=== PATIENT | female | born 1990 | race African-American/Black ===

== ENCOUNTER 2023-03-01 16:52 | Emergency (ER) | payer SELFPAY ==
[2023-03-01 17:23] LABS: BASOPHILS ABSOLUTE AUTO 0.04 10^3/uL (0.00-0.50); BASOPHILS PERCENT AUTO 0.4 % (0-1); EOSINOPHILS PERCENT AUTO 1.1 % (0-6); HEMATOCRIT 41.9 % (37.0-47.0); HEMOGLOBIN 13.1 g/dL (12.0-16.0); IMMATURE GRAN ABSOLUTE AUTO 0.01 10^3/uL (0.00-0.49); IMMATURE GRAN PERCENT AUTO 0.1 % (0.0-4.9); LYMPHOCYTES PERCENT AUTO 34.6 % (24-44); MEAN CORPUSCULAR HEMOGLOBIN 25.5 pg (27.0-32.0); MEAN CORPUSCULAR HGB CONC 31.3 g/dL (32.0-36.0); MEAN CORPUSCULAR VOLUME 81.7 fL (83.0-97.0); MONOCYTES ABSOLUTE AUTO 0.48 10^3/uL (0.00-1.50); MONOCYTES PERCENT AUTO 5.2 % (0-10); NEUTROPHILS ABSOLUTE AUTO 5.43 x10^3/uL (1.80-8.00); NEUTROPHILS PERCENT AUTO 58.6 % (41-71); PLATELET COUNT,PLT 402 10^3/uL (150-400); RED BLOOD CELL COUNT 5.13 x10^6/uL (4.00-5.50); WHITE BLOOD CELL COUNT,WBC 9.3 10^3/uL (4.0-11.0)
[2023-03-01] MEDS: Ketorolac 30 MG/ML SDV IM ONE (17:32)
[2023-03-01 17:36] LABS: ALBUMIN 3.3 g/dL (3.4-5.0); BILIRUBIN TOTAL 0.2 mg/dL (0.0-1.0); CALCIUM 8.8 mg/dL (8.4-10.1); CREATININE 0.8 mg/dL (0.6-1.0); EST CRCL DRUG DOSING (CG) 77.59 mL/min; POTASSIUM,K 3.8 mEq/L (3.5-5.0); PROTEIN TOTAL,TP 7.7 g/dL (6.4-8.2)
== END 2023-03-01 18:54 | disposition home or self-care (01) ==
LOC: CC.ED 16:52
DX: S29.011A Strain of muscle and tendon of front wall of thorax, initial encounter (principal)
CPT/HCPCS: 36415; 71046; 80053; 84484; 85025; 96372; 99285; J1885; 93005; 93010; 99284